=== PATIENT | female | born 1940 | race Caucasian/White ===

== ENCOUNTER 2019-08-22 05:39 | Inpatient (IN) ==
[2019-08-22] MEDS ORDERED: ONDANSETRON 4 MG/2 ML VIAL IV STA (06:26)
[2019-08-22] MEDS ORDERED: HYDROmorphone 2 MG/1 ML VIAL IV STA (06:26)
[2019-08-22] MEDS ORDERED: SODIUM CHLORIDE 0.9% 500 ML IV STA (06:26)
[2019-08-22 06:37] LABS: Basophils # 0.1 10*3/uL (0.0-0.2); Basophils % 1.1 % (0.0-0.8); Eosinophils # 0.3 10*3/uL (0.0-0.87); Hematocrit 31.1 VOL% (35.7-47.0); Hemoglobin 10.6 GM/DL (12.0-16.0); Immature Granulocytes % 0.4 %; Immature Granulocytes Absolute 0.03 #; Lymphocytes # 3.3 10*3/uL (1.4-4.0); Lymphocytes % 38.2 % (21.3-54.2); Mean Corpuscular HGB Conc 34.1 GM/DL (32-36); Monocytes % 22.5 % (1.7-12.7); Neutrophils % 33.8 % (38.7-73.9); Platelet Count 253 T/CUMM (130-400); Red Blood Count 3.31 MC/CUMM (3.8-5.5); Red Cell Distribution Width 15.6 % (9.3-17.3); White Blood Count 8.6 T/CUMM (4-12)
[2019-08-22 06:51] LABS: Alanine Aminotransferase 14 U/L (13-56); Albumin 3.1 G/DL (3.4-5.0); Alkaline Phosphatase 90 U/L (45-117); Aspartate Amino Transferase 29 U/L (0-37); Blood Urea Nitrogen 41 MG/DL (7-18); Calcium 9.9 MG/DL (8.5-10.1); Estimated Glom Filtration Rate 17 ML/MIN; Glucose 156 MG/DL (74-106); Osmolality,Calculated 278.4 MOS/KG (273-304); Total Protein 7.3 G/DL (6.4-8.3)
[2019-08-22 07:11] LABS: Eosinophils 1 % (0-10); Hypochromasia Slight; Lymphocytes 37 % (20-55); Platelet Estimate Normal; Segmented Neutrophils 48 % (50-85); Total Cells Counted 100
[2019-08-22 07:26] LABS: Apearance,Urine CLOUDY (Clear); Bilirubin,Urine Negative (Negative); Blood, Urine Small mg/dL (Negative); Glucose,Urine (UA) Negative (Negative); Ketones,Urine Negative (Negative); Nitrite,Urine Negative (Negative); Protein,Urine 30 MG/DL; RBC,Urine 12 /HPF (0-4); Urine Specific Gravity 1.012 (1.001-1.035); WBC,Urine 784 /HPF (0-6)
[2019-08-22 07:29] LABS: Barbiturates Screen,Urine Negative (Negative); Benzodiazepines Screen,Urine Negative (Negative); Cannabinoid Screen,Urine Negative (Negative); Opiate Screen,Urine Negative (Negative); Phencyclidine Screen,Urine Negative (Negative); Urine Color Dark yellow (Yellow)
[2019-08-22] MEDS ORDERED: SODIUM CHLORIDE 0.9% 1,000 ML IV STA (10:06)
[2019-08-22] MEDS ORDERED: cefTRIAXone 1,000 MG in SODIUM CHLORIDE 0.9% 100 ML IV STA (10:07)
[2019-08-22] MEDS ORDERED: cefTRIAXone 1,000 MG in SYRINGE 1 EACH IV STA (10:50)
[2019-08-22] MEDS ORDERED: DEXTROSE 50% 25 GM/50 ML VIAL IV PRN (11:16)
[2019-08-22] MEDS ORDERED: GLUCAGON 1 MG VIAL IM PRN (11:16)
[2019-08-22] MEDS: INSULIN REGULAR 100 UNIT/ML SUBCUT SCH ×3 (12:53→22:01)
[2019-08-22] MEDS: LACTULOSE 20 GM/30 ML UDCUP PO SCH ×2 (13:40→23:12)
[2019-08-22] MEDS: ACETAMINOPHEN 325 MG TABLET PO PRN ×2 (16:24→21:49)
[2019-08-22] MEDS: ONDANSETRON 4 MG/2 ML VIAL IV PRN ×2 (16:24→21:50)
[2019-08-22] MEDS: RIFAXIMIN 550 MG TABLET PO SCH (21:49)
[2019-08-22] MEDS: POTASSIUM CHLORIDE 20 MEQ TABLET PO PRN ×2 (21:49→23:12)
[2019-08-22] MEDS: PROPRANOLOL 10 MG TABLET PO SCH (21:49)
[2019-08-22] MEDS: MORPHINE 4 MG/1 ML VIAL IV PRN (23:13)
[2019-08-23] MEDS: POTASSIUM CHLORIDE 20 MEQ TABLET PO PRN ×2 (02:20→06:38)
[2019-08-23 06:07] LABS: Basophils # 0.1 10*3/uL (0.0-0.2); Basophils % 0.8 % (0.0-0.8); Eosinophils # 0.3 10*3/uL (0.0-0.87); Eosinophils % 4.8 % (0.00-10.9); Hematocrit 27.7 VOL% (35.7-47.0); Hemoglobin 9.5 GM/DL (12.0-16.0); Immature Granulocytes % 0.3 %; Immature Granulocytes Absolute 0.02 #; Lymphocytes # 1.5 10*3/uL (1.4-4.0); Lymphocytes % 21.1 % (21.3-54.2); Mean Corpuscular HGB Conc 34.3 GM/DL (32-36); Mean Corpuscular Volume 95.2 FL (87-102); Monocytes % 21.1 % (1.7-12.7); Neutrophils % 51.9 % (38.7-73.9); Platelet Count 202 T/CUMM (130-400); Red Blood Count 2.91 MC/CUMM (3.8-5.5); Red Cell Distribution Width 15.6 % (9.3-17.3); White Blood Count 7.1 T/CUMM (4-12)
[2019-08-23] MEDS: LEVOTHYROXINE 112 MCG TABLET PO SCH (06:37)
[2019-08-23 06:38] LABS: Eosinophils 2 % (0-10); Lymphocytes 21 % (20-55); Platelet Estimate Normal; Segmented Neutrophils 60 % (50-85); Total Cells Counted 100
[2019-08-23 06:41] LABS: Calcium 9.1 MG/DL (8.5-10.1); Osmolality,Calculated 280.2 MOS/KG (273-304)
[2019-08-23] MEDS: MORPHINE 4 MG/1 ML VIAL IV PRN ×2 (06:48→15:27)
[2019-08-23] MEDS: ONDANSETRON 4 MG/2 ML VIAL IV PRN ×2 (06:48→15:27)
[2019-08-23] MEDS: cefTRIAXone 1,000 MG in SYRINGE 1 EACH IV SCH (08:56)
[2019-08-23] MEDS: RIFAXIMIN 550 MG TABLET PO SCH ×2 (08:56→21:40)
[2019-08-23] MEDS: PANTOPRAZOLE 40 MG TABLET PO SCH (08:56)
[2019-08-23] MEDS: PROPRANOLOL 10 MG TABLET PO SCH ×2 (08:56→21:40)
[2019-08-23] MEDS: INSULIN REGULAR 100 UNIT/ML SUBCUT SCH ×4 (09:04→21:30)
[2019-08-23] MEDS: LACTULOSE 20 GM/30 ML UDCUP PO SCH (12:41)
[2019-08-23] MEDS ORDERED: diphenhydrAMINE 50 MG/1 ML VIAL IV ONE (17:30)
[2019-08-23] MEDS ORDERED: HALOPERIDOL 5 MG/ML AMP IV ONE (17:30)
[2019-08-24] MEDS: LACTULOSE 20 GM/30 ML UDCUP PO SCH ×4 (00:11→22:25)
[2019-08-24] MEDS: LEVOTHYROXINE 112 MCG TABLET PO SCH (05:52)
[2019-08-24 05:58] LABS: Basophils # 0.1 10*3/uL (0.0-0.2); Basophils % 0.7 % (0.0-0.8); Eosinophils # 0.3 10*3/uL (0.0-0.87); Hematocrit 28.1 VOL% (35.7-47.0); Immature Granulocytes % 0.4 %; Immature Granulocytes Absolute 0.03 #; Lymphocytes # 1.7 10*3/uL (1.4-4.0); Mean Corpuscular HGB Conc 35.6 GM/DL (32-36); Mean Corpuscular Volume 92.4 FL (87-102); Monocytes % 19.1 % (1.7-12.7); Neutrophils % 52.8 % (38.7-73.9); Platelet Count 218 T/CUMM (130-400); Red Blood Count 3.04 MC/CUMM (3.8-5.5); White Blood Count 7.5 T/CUMM (4-12)
[2019-08-24 06:13] LABS: Calcium 8.9 MG/DL (8.5-10.1); Osmolality,Calculated 271.8 MOS/KG (273-304)
[2019-08-24 06:23] LABS: Eosinophils 5 % (0-10); Lymphocytes 18 % (20-55); Segmented Neutrophils 66 % (50-85); Total Cells Counted 100
[2019-08-24 06:24] LABS: Hypochromasia 1+; Ovalocytes Slight; Platelet Estimate Adequate
[2019-08-24] MEDS: INSULIN REGULAR 100 UNIT/ML SUBCUT SCH ×4 (09:29→22:25)
[2019-08-24] MEDS: PANTOPRAZOLE 40 MG TABLET PO SCH (09:30)
[2019-08-24] MEDS: cefTRIAXone 1,000 MG in SYRINGE 1 EACH IV SCH (09:30)
[2019-08-24] MEDS: PROPRANOLOL 10 MG TABLET PO SCH ×2 (09:30→22:25)
[2019-08-24] MEDS: RIFAXIMIN 550 MG TABLET PO SCH ×2 (09:30→22:25)
[2019-08-24] MEDS: DEXTROSE 5% NACL 0.45% 1,000 ML IV SCH ×2 (09:30→21:10)
[2019-08-24] MEDS: MORPHINE 4 MG/1 ML VIAL IV PRN ×2 (10:33→22:08)
[2019-08-24] MEDS ORDERED: TUBERCULIN SKIN TEST 0.1 ML SYRINGE INTRADERM ONE (15:26)
[2019-08-24] MEDS: ZINC OXIDE PASTE 113 GM TUBE TOP SCH ×2 (17:47→22:25)
[2019-08-24] MEDS: CEFEPIME 1,000 MG in SODIUM CHLORIDE 0.9% 100 ML IV SCH (18:09)
[2019-08-24] MEDS: POTASSIUM CHLORIDE 20 MEQ TABLET PO PRN (22:25)
[2019-08-25 05:33] LABS: Basophils % 0.5 % (0.0-0.8); Eosinophils # 0.3 10*3/uL (0.0-0.87); Eosinophils % 4.6 % (0.00-10.9); Hematocrit 25.4 VOL% (35.7-47.0); Hemoglobin 8.9 GM/DL (12.0-16.0); Immature Granulocytes % 0.3 %; Immature Granulocytes Absolute 0.02 #; Lymphocytes # 1.6 10*3/uL (1.4-4.0); Lymphocytes % 21.8 % (21.3-54.2); Mean Corpuscular Volume 92.7 FL (87-102); Neutrophils % 52.8 % (38.7-73.9); Platelet Count 189 T/CUMM (130-400); Red Blood Count 2.74 MC/CUMM (3.8-5.5); Red Cell Distribution Width 14.9 % (9.3-17.3); White Blood Count 7.4 T/CUMM (4-12)
[2019-08-25] MEDS: LACTULOSE 20 GM/30 ML UDCUP PO SCH ×2 (05:33→08:51)
[2019-08-25] MEDS: CEFEPIME 1,000 MG in SODIUM CHLORIDE 0.9% 100 ML IV SCH (05:33)
[2019-08-25 05:55] LABS: Calcium 8.2 MG/DL (8.5-10.1); Osmolality,Calculated 271.8 MOS/KG (273-304)
[2019-08-25 05:57] LABS: Band Neutrophils 1 % (0-10); Eosinophils 1 % (0-10); Lymphocytes 22 % (20-55); Segmented Neutrophils 70 % (50-85); Total Cells Counted 100
[2019-08-25 05:58] LABS: Hypochromasia 1+; Microcytosis 1+; Platelet Estimate Normal; Polychromasia Few; Target Cells Few
[2019-08-25] MEDS: LEVOTHYROXINE 112 MCG TABLET PO SCH (06:53)
[2019-08-25] MEDS ORDERED: traMADol 50 MG TABLET PO PRN (08:36)
[2019-08-25] MEDS: INSULIN REGULAR 100 UNIT/ML SUBCUT SCH ×2 (08:50→12:39)
[2019-08-25] MEDS: ZINC OXIDE PASTE 113 GM TUBE TOP SCH (08:51)
[2019-08-25] MEDS: PANTOPRAZOLE 40 MG TABLET PO SCH (08:51)
[2019-08-25] MEDS: PROPRANOLOL 10 MG TABLET PO SCH (08:51)
[2019-08-25] MEDS: RIFAXIMIN 550 MG TABLET PO SCH (08:51)
[2019-08-25] MEDS ORDERED: SODIUM CHLORIDE 0.9% 1,000 ML IV SCH (13:00)
[2019-08-25 13:54] VITALS: BP 117/69
[2019-08-25] MEDS ORDERED: LACTULOSE 20 GM/30 ML UDCUP PO SCH (15:00)
[2019-08-25] MEDS: DEXTROSE 5% NACL 0.45% 1,000 ML IV SCH (15:50)
== END 2019-08-25 16:04 | DRG 442 ==
LOC: N.ED 05:39 → N.EDINP 11:16 → SUATTDRO 11:16 → N.5E 11:48
PROVIDERS: ADMIT Internal Medicine; ATTEND Emergency Medicine

== ENCOUNTER 2019-12-15 17:36 | Inpatient (IN) ==
[2019-12-15 18:14] LABS: Basophils # 0.1 10*3/uL (0.0-0.2); Basophils % 0.9 % (0.0-0.8); Eosinophils # 0.4 10*3/uL (0.0-0.87); Eosinophils % 4.6 % (0.00-10.9); Hematocrit 33.1 VOL% (35.7-47.0); Hemoglobin 11.4 GM/DL (12.0-16.0); Immature Granulocytes % 0.3 %; Immature Granulocytes Absolute 0.02 #; Lymphocytes # 2.3 10*3/uL (1.4-4.0); Lymphocytes % 28.5 % (21.3-54.2); Mean Corpuscular HGB Conc 34.4 GM/DL (32-36); Mean Corpuscular Volume 99.7 FL (87-102); Mean Platelet Volume 11.7 FL (9.6-12.0); Monocytes % 15.6 % (1.7-12.7); Neutrophils % 50.1 % (38.7-73.9); Platelet Count 178 T/CUMM (130-400); Red Blood Count 3.32 MC/CUMM (3.8-5.5); Red Cell Distribution Width 14.4 % (9.3-17.3)
[2019-12-15] MEDS ORDERED: SODIUM CHLORIDE 0.9% 500 ML IV STA (18:28)
[2019-12-15 18:36] LABS: Albumin 3.3 G/DL (3.4-5.0); Bilirubin,Total 2.1 MG/DL (0.2-1.0); Osmolality,Calculated 292.7 MOS/KG (273-304); Total Protein 7.8 G/DL (6.4-8.3)
[2019-12-15 18:46] LABS: INR 1.1; PT Patient Result 12.1 SECS (9.8-11.9)
[2019-12-15 18:48] LABS: Eosinophils 6 % (0-10); Lymphocytes 22 % (20-55); Segmented Neutrophils 63 % (50-85); Total Cells Counted 100
[2019-12-15 18:49] LABS: Anisocytosis Slight; Macrocytosis Slight; Platelet Estimate Normal
[2019-12-15 18:59] LABS: Troponin I 0.032 NG/ML (0.00-0.045)
[2019-12-15 19:04] LABS: Prolactin 16.9 NG/ML
[2019-12-15 19:32] LABS: Apearance,Urine CLEAR (Clear); Bilirubin,Urine Negative (Negative); Blood, Urine Negative (Negative); Glucose,Urine (UA) Negative (Negative); Hyaline Casts,Urine 18 /LPF (0-3); Ketones,Urine Negative (Negative); Mucus,Urine Occasional /LPF (Occasional); Nitrite,Urine Negative (Negative); Protein,Urine Negative; RBC,Urine <1 /HPF (0-4); Squamous Epithelial Cell,Urine Occasional /HPF (0-10); Urine Color Yellow (Yellow); Urine Specific Gravity 1.013 (1.001-1.035); Urine Urobilinogen < 2.0 EU/DL (0.2-1.0); WBC,Urine 1 /HPF (0-6)
[2019-12-15 19:58] LABS: Barbiturates Screen,Urine Negative (Negative); Benzodiazepines Screen,Urine Negative (Negative); Cannabinoid Screen,Urine Negative (Negative); Opiate Screen,Urine Negative (Negative); Phencyclidine Screen,Urine Negative (Negative)
[2019-12-15] MEDS ORDERED: DEXTROSE 50% 25 GM/50 ML SYRINGE IV PRN (23:16)
[2019-12-15] MEDS ORDERED: ONDANSETRON 4 MG/2 ML VIAL IV PRN (23:16)
[2019-12-15] MEDS ORDERED: GLUCAGON 1 MG VIAL IM PRN (23:16)
[2019-12-15] MEDS ORDERED: DEXTROSE 10% 250 ML BAG IV PRN (23:18)
[2019-12-15] MEDS: INSULIN LISPRO 100 UNIT/ML SUBCUT SCH (23:50)
[2019-12-15] MEDS: SODIUM CHLORIDE 0.9% 1,000 ML IV SCH (23:57)
[2019-12-15] MEDS: LACTULOSE 20 GM/30 ML UDCUP PO SCH (23:57)
[2019-12-16] MEDS: LACTULOSE 20 GM/30 ML UDCUP PO SCH ×5 (04:37→21:45)
[2019-12-16 05:56] LABS: Basophils # 0.1 10*3/uL (0.0-0.2); Basophils % 0.6 % (0.0-0.8); Eosinophils # 0.4 10*3/uL (0.0-0.87); Eosinophils % 4.7 % (0.00-10.9); Hematocrit 27.4 VOL% (35.7-47.0); Hemoglobin 9.3 GM/DL (12.0-16.0); Immature Granulocytes % 0.4 %; Immature Granulocytes Absolute 0.03 #; Lymphocytes % 25.3 % (21.3-54.2); Mean Corpuscular HGB Conc 33.9 GM/DL (32-36); Mean Corpuscular Volume 98.9 FL (87-102); Mean Platelet Volume 12.4 FL (9.6-12.0); Monocytes % 18.2 % (1.7-12.7); Neutrophils % 50.8 % (38.7-73.9); Platelet Count 145 T/CUMM (130-400); Red Blood Count 2.77 MC/CUMM (3.8-5.5); Red Cell Distribution Width 14.6 % (9.3-17.3); White Blood Count 7.8 T/CUMM (4-12)
[2019-12-16 06:09] LABS: Albumin 2.6 G/DL (3.4-5.0); Calcium 9.4 MG/DL (8.5-10.1); Osmolality,Calculated 292.7 MOS/KG (273-304); Thyroid Stimulating Hormone 1.11 uIU/ml (0.358-3.74); Total Protein 6.5 G/DL (6.4-8.3)
[2019-12-16 06:31] LABS: Eosinophils 4 % (0-10); Hypochromasia 1+; Lymphocytes 26 % (20-55); Microcytosis 1+; Platelet Estimate Adequate; Polychromasia Few; Segmented Neutrophils 60 % (50-85); Total Cells Counted 100
[2019-12-16] MEDS: INSULIN LISPRO 100 UNIT/ML SUBCUT SCH ×4 (09:54→21:45)
[2019-12-16] MEDS: SODIUM CHLORIDE 0.9% 1,000 ML IV SCH (12:42)
[2019-12-16] MEDS: cefTRIAXone 2,000 MG in SYRINGE 1 EACH IV SCH (15:53)
[2019-12-16] MEDS: HEPARIN 5,000 UNIT/1 ML VIAL SUBCUT SCH (16:05)
[2019-12-16] MEDS: RIFAXIMIN 550 MG TABLET PO SCH ×2 (16:11→21:46)
[2019-12-16] MEDS: LEVOTHYROXINE 112 MCG TABLET PO SCH (16:11)
[2019-12-16] MEDS: PROPRANOLOL 10 MG TABLET PO SCH ×2 (16:17→21:45)
[2019-12-17] MEDS: HEPARIN 5,000 UNIT/1 ML VIAL SUBCUT SCH ×4 (00:21→23:00)
[2019-12-17] MEDS: SODIUM CHLORIDE 0.9% 1,000 ML IV SCH ×2 (04:30→17:11)
[2019-12-17 05:49] LABS: Basophils # 0.1 10*3/uL (0.0-0.2); Basophils % 1.2 % (0.0-0.8); Eosinophils # 0.6 10*3/uL (0.0-0.87); Hematocrit 30.8 VOL% (35.7-47.0); Immature Granulocytes % 0.3 %; Immature Granulocytes Absolute 0.02 #; Lymphocytes # 1.7 10*3/uL (1.4-4.0); Lymphocytes % 26.1 % (21.3-54.2); Mean Corpuscular HGB Conc 32.5 GM/DL (32-36); Mean Corpuscular Volume 104.4 FL (87-102); Mean Platelet Volume 12.3 FL (9.6-12.0); Monocytes % 17.8 % (1.7-12.7); Neutrophils % 45.6 % (38.7-73.9); Platelet Count 166 T/CUMM (130-400); Red Blood Count 2.95 MC/CUMM (3.8-5.5); Red Cell Distribution Width 14.7 % (9.3-17.3); White Blood Count 6.5 T/CUMM (4-12)
[2019-12-17 06:08] LABS: Calcium 9.1 MG/DL (8.5-10.1); Osmolality,Calculated 298.8 MOS/KG (273-304)
[2019-12-17] MEDS: LEVOTHYROXINE 112 MCG TABLET PO SCH (06:42)
[2019-12-17 06:51] LABS: Band Neutrophils 1 % (0-10); Eosinophils 10 % (0-10); Hypochromasia 1+; Lymphocytes 26 % (20-55); Macrocytosis Slight; Segmented Neutrophils 51 % (50-85); Total Cells Counted 100
[2019-12-17 06:52] LABS: Ovalocytes Slight; Platelet Estimate Adequate
[2019-12-17] MEDS: INSULIN LISPRO 100 UNIT/ML SUBCUT SCH ×4 (09:30→21:54)
[2019-12-17] MEDS: RIFAXIMIN 550 MG TABLET PO SCH ×2 (09:33→21:54)
[2019-12-17] MEDS: PROPRANOLOL 10 MG TABLET PO SCH ×2 (09:33→21:54)
[2019-12-17] MEDS: LACTULOSE 20 GM/30 ML UDCUP PO SCH ×4 (09:33→21:54)
[2019-12-17] MEDS: cefTRIAXone 2,000 MG in SYRINGE 1 EACH IV SCH (15:50)
[2019-12-18] MEDS: SODIUM CHLORIDE 0.9% 1,000 ML IV SCH (04:58)
[2019-12-18 05:23] LABS: Basophils % 0.5 % (0.0-0.8); Eosinophils # 0.6 10*3/uL (0.0-0.87); Hemoglobin 8.8 GM/DL (12.0-16.0); Immature Granulocytes % 0.2 %; Immature Granulocytes Absolute 0.01 #; Lymphocytes # 1.7 10*3/uL (1.4-4.0); Lymphocytes % 29.3 % (21.3-54.2); Mean Corpuscular HGB Conc 32.6 GM/DL (32-36); Mean Corpuscular Volume 102.7 FL (87-102); Mean Platelet Volume 11.6 FL (9.6-12.0); Monocytes % 18.3 % (1.7-12.7); Neutrophils % 41.7 % (38.7-73.9); Platelet Count 168 T/CUMM (130-400); Red Blood Count 2.63 MC/CUMM (3.8-5.5); Red Cell Distribution Width 14.6 % (9.3-17.3); White Blood Count 5.7 T/CUMM (4-12)
[2019-12-18 05:46] LABS: Calcium 8.4 MG/DL (8.5-10.1); Osmolality,Calculated 290.1 MOS/KG (273-304)
[2019-12-18 06:27] LABS: Eosinophils 6 % (0-10); Lymphocytes 20 % (20-55)
[2019-12-18 06:28] LABS: Anisocytosis Slight; Macrocytosis Slight; Platelet Estimate Normal; Segmented Neutrophils 60 % (50-85); Total Cells Counted 100
[2019-12-18] MEDS: HEPARIN 5,000 UNIT/1 ML VIAL SUBCUT SCH (06:39)
[2019-12-18] MEDS: LEVOTHYROXINE 112 MCG TABLET PO SCH (06:39)
[2019-12-18 07:25] VITALS: BP 121/59
[2019-12-18] MEDS: INSULIN LISPRO 100 UNIT/ML SUBCUT SCH (09:12)
[2019-12-18] MEDS: RIFAXIMIN 550 MG TABLET PO SCH (09:17)
[2019-12-18] MEDS: PROPRANOLOL 10 MG TABLET PO SCH (09:17)
[2019-12-18] MEDS: LACTULOSE 20 GM/30 ML UDCUP PO SCH (09:17)
== END 2019-12-18 12:20 | disposition home health service (06) | DRG 432 ==
LOC: EDBD → EDUNIT# → N.EDINP 17:36 → N.ED 17:36 → N.TELES 22:04 → SUATTDRO 12-16 14:54
PROVIDERS: ADMIT Internal Medicine; ATTEND Internal Medicine

== ENCOUNTER 2020-02-23 19:54 | Observation (INO) ==
[2020-02-23] MEDS ORDERED: SODIUM CHLORIDE 0.9% 500 ML IV STA (20:55)
[2020-02-23 21:32] LABS: ABG Base Excess 0.4 MMOL/L (-2.5-2.5); ABG HCO3 24.8 MMOL/L (20-26); ABG Oxygen Saturation 98.6 % (95-100); ABG PCO2 34.4 MM HG (35-48); ABG PH 7.451 (7.35-7.45); ABG TCO2 21.7 MMOL/L (23-27); Allen Test Positive
[2020-02-23 21:48] LABS: Basophils % 0.5 % (0.0-0.8); Eosinophils % 0.3 % (0.00-10.9); Hematocrit 39.4 VOL% (35.7-47.0); Immature Granulocytes % 0.3 %; Immature Granulocytes Absolute 0.01 #; Lymphocytes # 1.1 10*3/uL (1.4-4.0); Lymphocytes % 28.1 % (21.3-54.2); Mean Corpuscular Volume 100.5 FL (87-102); Monocytes % 19.6 % (1.7-12.7); Neutrophils % 51.2 % (38.7-73.9); Platelet Count 118 T/CUMM (130-400); Red Blood Count 3.92 MC/CUMM (3.8-5.5); Red Cell Distribution Width 14.2 % (9.3-17.3)
[2020-02-23 21:56] LABS: INR 1.2; PT Patient Result 12.5 SECS (9.8-11.9)
[2020-02-23 22:12] LABS: Alanine Aminotransferase 50 U/L (13-56); Albumin 2.8 G/DL (3.4-5.0); Alkaline Phosphatase 182 U/L (45-117); Aspartate Amino Transferase 43 U/L (0-37); Blood Urea Nitrogen 41 MG/DL (7-18); Calcium 9.2 MG/DL (8.5-10.1); Estimated Glom Filtration Rate 17 ML/MIN; Glucose 128 MG/DL (74-106); Osmolality,Calculated 288.5 MOS/KG (273-304); Total Protein 6.5 G/DL (6.4-8.3); Troponin I < 0.015 NG/ML (0.00-0.045)
[2020-02-23 22:36] LABS: Apearance,Urine CLEAR (Clear); Bilirubin,Urine Negative (Negative); Blood, Urine Negative (Negative); Glucose,Urine (UA) Negative (Negative); Hyaline Casts,Urine 28 /LPF (0-3); Ketones,Urine Negative (Negative); Mucus,Urine Occasional /LPF (Occasional); Nitrite,Urine Negative (Negative); Protein,Urine Negative; RBC,Urine <1 /HPF (0-4); Squamous Epithelial Cell,Urine Occasional /HPF (0-10); Urine Color Yellow (Yellow); Urine Specific Gravity 1.009 (1.001-1.035); Urine Urobilinogen < 2.0 EU/DL (0.2-1.0); WBC,Urine <1 /HPF (0-6)
[2020-02-23 22:41] LABS: Barbiturates Screen,Urine Negative (Negative); Benzodiazepines Screen,Urine Negative (Negative); Cannabinoid Screen,Urine Negative (Negative); Opiate Screen,Urine Negative (Negative); Phencyclidine Screen,Urine Negative (Negative)
[2020-02-23 22:54] LABS: Sedimentation Rate-Westergren 29 MM/HR (0-30)
[2020-02-24 00:13] LABS: Free T4 (Free Thyroxine) 2.08 NG/DL (0.76-1.46); Thyroid Stimulating Hormone 0.342 uIU/ml (0.358-3.74)
[2020-02-24 02:41] LABS: Lymphocytes 29 % (20-55); Metamyelocytes 1 %; Myelocytes 1 %; Segmented Neutrophils 58 % (50-85); Total Cells Counted 100
[2020-02-24 02:43] LABS: Hypochromasia 1+; Platelet Estimate Decreased
[2020-02-24 02:44] LABS: Atypical Lymphocytes 1+; Ovalocytes 1+; Reactive Lymphocytes Few
[2020-02-24] MEDS ORDERED: ONDANSETRON 4 MG/2 ML VIAL IV PRN (03:19)
[2020-02-24] MEDS: SODIUM CHLORIDE 0.9% 1,000 ML IV SCH ×2 (03:37→18:13)
[2020-02-24 04:20] LABS: Basophils % 0.6 % (0.0-0.8); Eosinophils % 0.2 % (0.00-10.9); Hematocrit 30.6 VOL% (35.7-47.0); Immature Granulocytes % 0.4 %; Immature Granulocytes Absolute 0.02 #; Lymphocytes # 1.3 10*3/uL (1.4-4.0); Lymphocytes % 25.9 % (21.3-54.2); Mean Corpuscular HGB Conc 32.7 GM/DL (32-36); Mean Corpuscular Volume 100.3 FL (87-102); Mean Platelet Volume 12.1 FL (9.6-12.0); Monocytes % 20.2 % (1.7-12.7); Neutrophils % 52.7 % (38.7-73.9); Platelet Count 152 T/CUMM (130-400); Red Blood Count 3.05 MC/CUMM (3.8-5.5); White Blood Count 4.9 T/CUMM (4-12)
[2020-02-24 04:40] LABS: Albumin 2.5 G/DL (3.4-5.0); Bilirubin,Total 2.4 MG/DL (0.2-1.0); Calcium 9.4 MG/DL (8.5-10.1); Osmolality,Calculated 290.3 MOS/KG (273-304); Total Protein 6.2 G/DL (6.4-8.3)
[2020-02-24 04:49] LABS: Hypochromasia 1+; Lymphocytes 26 % (20-55); Ovalocytes Slight; Platelet Estimate Adequate; Segmented Neutrophils 58 % (50-85); Total Cells Counted 100
[2020-02-24] MEDS: LACTULOSE 20 GM/30 ML UDCUP PO SCH ×3 (06:26→19:05)
[2020-02-24] MEDS ORDERED: ONDANSETRON 4 MG TABLET PO PRN (11:16)
[2020-02-24] MEDS ORDERED: ZALEPLON 5 MG CAPSULE PO PRN (11:16)
[2020-02-24 14:57] LABS: Neutrophils,Peritoneal Fluid 2 %
[2020-02-24 14:58] LABS: RBC,Peritoneal Fluid 9 T/CUMM
[2020-02-24 15:05] LABS: Total Protein,Peritoneal Fluid 1.3 G/DL
[2020-02-24] MEDS: GABAPENTIN 100 MG CAPSULE PO SCH ×2 (16:49→21:14)
[2020-02-24] MEDS: FUROSEMIDE 80 MG TABLET PO SCH (16:49)
[2020-02-24] MEDS ORDERED: DONEPEZIL 5 MG TABLET PO SCH (21:00)
[2020-02-24] MEDS: PANTOPRAZOLE 40 MG TABLET PO SCH (21:14)
[2020-02-24] MEDS: RIFAXIMIN 550 MG TABLET PO SCH (21:14)
[2020-02-24] MEDS: SPIRONOLACTONE 50 MG TABLET PO SCH (21:14)
[2020-02-24] MEDS: MEMANTINE 10 MG TABLET PO SCH (21:14)
[2020-02-24] MEDS: PROPRANOLOL 10 MG TABLET PO SCH (21:15)
[2020-02-25] MEDS: LACTULOSE 20 GM/30 ML UDCUP PO SCH ×3 (00:23→11:54)
[2020-02-25] MEDS ORDERED: LEVOTHYROXINE 112 MCG TABLET PO SCH (06:30)
[2020-02-25] MEDS: SODIUM CHLORIDE 0.9% 1,000 ML IV SCH (07:51)
[2020-02-25 08:46] LABS: Basophils # 0.1 10*3/uL (0.0-0.2); Basophils % 0.9 % (0.0-0.8); Hematocrit 31.9 VOL% (35.7-47.0); Hemoglobin 10.5 GM/DL (12.0-16.0); Immature Granulocytes % 0.4 %; Immature Granulocytes Absolute 0.02 #; Lymphocytes # 1.6 10*3/uL (1.4-4.0); Lymphocytes % 30.6 % (21.3-54.2); Mean Corpuscular HGB Conc 32.9 GM/DL (32-36); Mean Corpuscular Volume 100.3 FL (87-102); Mean Platelet Volume 11.9 FL (9.6-12.0); Monocytes % 19.3 % (1.7-12.7); Neutrophils % 48.8 % (38.7-73.9); Platelet Count 162 T/CUMM (130-400); Red Blood Count 3.18 MC/CUMM (3.8-5.5); Red Cell Distribution Width 14.2 % (9.3-17.3); White Blood Count 5.3 T/CUMM (4-12)
[2020-02-25] MEDS ORDERED: buPROPion SR 100 MG TABLET PO SCH (09:00)
[2020-02-25] MEDS: FUROSEMIDE 80 MG TABLET PO SCH (09:08)
[2020-02-25] MEDS: PANTOPRAZOLE 40 MG TABLET PO SCH (09:08)
[2020-02-25] MEDS: SPIRONOLACTONE 50 MG TABLET PO SCH (09:08)
[2020-02-25] MEDS: MEMANTINE 10 MG TABLET PO SCH (09:08)
[2020-02-25] MEDS: RIFAXIMIN 550 MG TABLET PO SCH (09:09)
[2020-02-25 09:11] LABS: Calcium 8.6 MG/DL (8.5-10.1); Osmolality,Calculated 286.5 MOS/KG (273-304)
[2020-02-25] MEDS: PROPRANOLOL 10 MG TABLET PO SCH (09:19)
[2020-02-25 09:26] LABS: Hypochromasia 1+; Lymphocytes 22 % (20-55); Ovalocytes Slight; Platelet Estimate Adequate; Segmented Neutrophils 58 % (50-85); Total Cells Counted 100
[2020-02-25 11:22] VITALS: BP 109/45
== END 2020-02-25 14:48 | disposition home health service (06) ==
LOC: EDBD → EDUNIT# → N.EDINP 19:54 → N.ED 19:54 → SUATTDRO 23:56 → N.3E 02-24 10:26
PROVIDERS: ADMIT Internal Medicine; ATTEND Internal Medicine